=== PATIENT | male | born 1960 | race American Indian/Alaskan Native ===

== ENCOUNTER 2020-07-22 10:53 | Outpatient (CLI) | payer MEDICAID ==
[~2020-07-22 10:53] MED LIST: AMLO10TA13 PO; CARV25TA2 PO; DOCU-267 PO; ERGO500054 PO; HYDR-4069 PO; INSU100I31 SQ; PHO667C PO
[2020-07-22] MEDS ORDERED: LIDOcaine 2% 5ml jelly ONE (11:46)
== END 2020-07-22 23:59 | disposition home or self-care (01) ==
LOC: WOUND CARE 10:53 → EDSTATUS 11:00 → WOUND CARE 23:59
PROVIDERS: ATTEND Nurse Practitioner
DX: L02.31 Cutaneous abscess of buttock (principal); E11.621 Type 2 diabetes mellitus with foot ulcer; L97.511 Non-pressure chronic ulcer of other part of right foot limited to breakdown of skin; E11.22 Type 2 diabetes mellitus with diabetic chronic kidney disease; I12.9 Hypertensive chronic kidney disease with stage 1 through stage 4 chronic kidney disease, or unspecified chronic kidney disease; N18.4 Chronic kidney disease, stage 4 (severe); M72.0 Palmar fascial fibromatosis [Dupuytren]; E66.9 Obesity, unspecified; Z68.27 Body mass index [BMI] 27.0-27.9, adult; Z79.899 Other long term (current) drug therapy; Z98.890 Other specified postprocedural states; Z89.429 Acquired absence of other toe(s), unspecified side
CPT/HCPCS: 11042; 36416; 82948; 87070; 87075; 87077; 87186

== ENCOUNTER 2020-07-31 10:44 | Inpatient (IN) | payer MEDICAID ==
[~2020-07-31] VITALS: Ht 175.3 cm; Wt 96.0 kg
[2020-07-31] MEDS ORDERED: LIDOcaine 2% 5ml jelly ONE (11:23)
[2020-07-31] MEDS ORDERED: LIDOcaine 1% w/epiNEPHrine 1:200,000 30ml vial ONE (12:32)
[2020-07-31] MEDS ORDERED: diphenhydrAMINE 25mg capsule PO PRN (14:15)
[2020-07-31] MEDS ORDERED: bisacodyl 10mg suppository rectal RC PRN (14:15)
[2020-07-31] MEDS ORDERED: ondansetron/PF 4mg/2ml inj IV PRN (14:15)
[2020-07-31] MEDS ORDERED: HYDROmorphone inj. 0.5 MG/0.5 ML DISP.SYRIN IV PRN (14:15)
[2020-07-31] MEDS ORDERED: HYDROcodone/acetaminophen 5mg/325mg tablet PO PRN (14:15)
[2020-07-31] MEDS ORDERED: acetaminophen 325mg tablet PO PRN (14:15)
[2020-07-31] MEDS ORDERED: MESSAGE TO PHARMACY PO ONE (14:25)
[2020-07-31] MEDS ORDERED: glucagon, human recombinant 1mg kit SUBCUT PRN (14:25)
[2020-07-31] MEDS ORDERED: dextrose 50%-water 50ml dispensing syringe IV PRN ×2 (14:25)
[2020-07-31] MEDS ORDERED: dextrose ORAL solution 15 GM/59 ML bottle PO PRN ×2 (14:25)
[2020-07-31] MEDS ORDERED: VANCOmycin 2,000MG in NS 500ml IV soln IV ONE (15:00)
[2020-07-31 15:21] LABS: BASOPHILS # (AUTO) 0.1 X10'3 (0-0.2); BASOPHILS % (AUTO) 0.6 % (0-1); EOSINOPHILS # (AUTO) 0.1 X10'3 (0-0.9); EOSINOPHILS % (AUTO) 0.8 % (0-6); HEMATOCRIT 29.4 % (42.0-52.0); HEMOGLOBIN 9.8 g/dl (14.0-17.9); LYMPHOCYTES # (AUTO) 2.3 X10'3 (1.1-4.8); LYMPHOCYTES % (AUTO) 15.8 % (21-51); MEAN CORPUSCULAR HEMOGLOBIN 31.2 PG (27.0-31.0); MEAN CORPUSCULAR HGB CONC 33.3 g/dL (33.0-36.5); MEAN CORPUSCULAR VOLUME 93.9 FL (78-98); MONOCYTES # (AUTO) 1.3 X10'3 (0-0.9); MONOCYTES % (AUTO) 8.9 % (2-12); NEUTROPHILS # (AUTO) 10.8 X10'3 (1.8-7.7); NEUTROPHILS % (AUTO) 73.9 % (42-75); PLATELET COUNT 485 X10'3 (140-440); RED BLOOD COUNT 3.13 X10'6 (4.70-6.10); RED CELL DISTRIBUTION WIDTH 14.7 % (11.5-14.5); WHITE BLOOD COUNT 14.6 X10'3 (4.5-11.0)
[2020-07-31 15:34] LABS: PARTIAL THROMBOPLASTIN TIME 29 SECONDS (22-32)
[2020-07-31 15:40] LABS: HEMOGLOBIN A1C 7.8 % (4.5-6.2)
[2020-07-31 15:42] LABS: ALANINE AMINOTRANSFERASE 25 U/L (12-78); ALBUMIN 2.8 G/DL (3.4-5.0); ALBUMIN/GLOBULIN RATIO 0.4 (1.1-1.5); ALKALINE PHOSPHATASE 106 IU/L (46-116); ANION GAP 10 (8-16); ASPARTATE AMINO TRANSFERASE 11 U/L (10-37); BILIRUBIN,TOTAL 0.4 MG/DL (0.1-1.0); BLOOD UREA NITROGEN 45 MG/DL (7-18); BUN/CREATININE RATIO 7.5 (5.4-32.0); CALCIUM 9.9 MG/DL (8.5-10.1); CHLORIDE 91 MMOL/L (99-107); CREATININE 5.97 MG/DL (0.60-1.10); GLUCOSE 114 MG/DL (70-104); MAGNESIUM 2.5 MG/DL (1.5-2.4); PHOSPHORUS 5.9 MG/DL (2.3-4.5); POTASSIUM 3.7 MMOL/L (3.5-5.1); SODIUM 133 MMOL/L (135-145); TOTAL PROTEIN 9.6 G/DL (6.4-8.2); eGFR 10 ML/MIN
[2020-07-31] MEDS ORDERED: piperacillin/tazo 3.375gm/50ml 50 ML IV SCH (16:00)
--- NOTE | 2020-07-31 16:00 | NUR ---
Patient in room JAME 359. I have received report from Talisha MAHONEY and had the opportunity to ask questions and assume patient care.
[2020-07-31 16:30] VITALS: BP 123/64
[2020-07-31] MEDS ORDERED: vancomycin/NS 1 GM ADD-VANTAGE 250 ML IV PRN (17:25)
[2020-07-31 18:00] VITALS: BP 122/66
[2020-07-31] MEDS: docusate sod 100mg capsule PO SCH (19:09)
[2020-07-31] MEDS: HYDROcodone/acetaminophen 10/325mg tab PO PRN (19:10)
[2020-07-31] MEDS: insulin glargine (Lantus) pen - multi-dose SQ SCH (20:29)
[2020-07-31] MEDS ORDERED: temazepam 15mg capsule PO PRN (21:00)
[2020-07-31] MEDS: enoxaparin 30mg/0.3ml syringe SQ SCH (21:49)
[2020-07-31] MEDS: piperacillin/tazo 3.375gm/50ml 50 ML IV SCH (21:50)
[2020-08-01] VITALS: BP 166/76
[2020-08-01] MEDS: VANCOMYCIN LEVEL IV SCH (03:00)
[2020-08-01] MEDS: piperacillin/tazo 3.375gm/50ml 50 ML IV SCH ×3 (04:14→20:40)
--- NOTE | 2020-08-01 06:33 | NUR ---
Problems reprioritized. Patient report given, questions answered & plan of care reviewed with Santa NAVAS.
[2020-08-01 06:35] LABS: BASOPHILS # (AUTO) 0.1 X10'3 (0-0.2); BASOPHILS % (AUTO) 0.8 % (0-1); EOSINOPHILS # (AUTO) 0.2 X10'3 (0-0.9); EOSINOPHILS % (AUTO) 1.3 % (0-6); HEMATOCRIT 27.2 % (42.0-52.0); LYMPHOCYTES # (AUTO) 1.5 X10'3 (1.1-4.8); MEAN CORPUSCULAR HEMOGLOBIN 31.2 PG (27.0-31.0); MEAN CORPUSCULAR HGB CONC 33.2 g/dL (33.0-36.5); MEAN PLATELET VOLUME 7.2 FL (7.4-10.4); MONOCYTES % (AUTO) 7.7 % (2-12); NEUTROPHILS # (AUTO) 10.7 X10'3 (1.8-7.7); NEUTROPHILS % (AUTO) 79.2 % (42-75); PLATELET COUNT 445 X10'3 (140-440); RED CELL DISTRIBUTION WIDTH 14.5 % (11.5-14.5); WHITE BLOOD COUNT 13.6 X10'3 (4.5-11.0)
[2020-08-01 06:53] LABS: ALBUMIN 2.4 G/DL (3.4-5.0); ANION GAP 14 (8-16); BLOOD UREA NITROGEN 56 MG/DL (7-18); BUN/CREATININE RATIO 7.6 (5.4-32.0); CALCIUM 8.6 MG/DL (8.5-10.1); CHLORIDE 92 MMOL/L (99-107); CREATININE 7.41 MG/DL (0.60-1.10); GLUCOSE 150 MG/DL (70-104); MAGNESIUM 2.2 MG/DL (1.5-2.4); PHOSPHORUS 7.3 MG/DL (2.3-4.5); POTASSIUM 3.4 MMOL/L (3.5-5.1); SODIUM 134 MMOL/L (135-145); TOTAL CARBON DIOXIDE 27.7 MMOL/L (24-32); VANCOMYCIN,RANDOM 35.1 UG/ML; eGFR 8 ML/MIN
[2020-08-01] MEDS: docusate sod 100mg capsule PO SCH ×2 (07:40→20:39)
[2020-08-01 07:45] VITALS: BP 117/63
[2020-08-01] MEDS ORDERED: heparin 1,000unit/ml 10ml vial 10 ML IV ONE (08:00)
[2020-08-01] MEDS ORDERED: albumin (human) 25% 100ml IV 100 ML IV PRN (08:00)
[2020-08-01] MEDS ORDERED: epoetin 20,000 units/ml inj IV ONE (08:00)
[2020-08-01] MEDS ORDERED: heparin 1,000 units/ml 10ml inj IV ONE (08:00)
[2020-08-01] MEDS ORDERED: SEVE800T7 PO (08:02)
[2020-08-01] MEDS ORDERED: heparin 1,000 units/ml 10ml inj HE ONE ×2 (08:05)
[2020-08-01] MEDS: HYDROcodone/acetaminophen 10/325mg tab PO PRN ×2 (10:13→20:42)
[2020-08-01 11:50] VITALS: BP 126/62
[2020-08-01] MEDS ORDERED: LIDOcaine 1% (10mg/ml) 2ml vial SQ ONE (16:05)
--- NOTE | 2020-08-01 16:07 | NUR ---
Pt with A1c 7.8% with hx ESRD on HD admit with 2 right hip wounds, MRI of the pelvis and hip does not show any osteomyelitis per H&P. Attempted visit with pt at bedside however pt unavailable. Written protein and DM educations with RD contact information left at patient's bedside. Pt on a renal CHO controlled diet documented with 100% PO intake. D/w dietary to send double protein BIDLD for satiety and increased protein needs. Noted that pt with PhosLo on home med list though not receiving during admit, Phos currently 7.3 mg/dL up from 5.9 mg/dL on admit, d/w clinical pharmacist. Will continue to follow and monitor need for nutrition intervention. Addendum: 08/01/20 at [address] Amended: Links added.
[2020-08-01 18:00] VITALS: BP 121/65
--- NOTE | 2020-08-01 18:22 | NUR ---
Problems reprioritized. Patient report given, questions answered & plan of care reviewed with ELOISE SALCIDO.
[2020-08-01] MEDS: lactobacillus rhamnosus 10,000 MMU CELLS/CAPSULE PO SCH (20:39)
[2020-08-01] MEDS: enoxaparin 30mg/0.3ml syringe SQ SCH (20:40)
[2020-08-01] MEDS: sevelamer carbonate 800mg tablet PO SCH (20:40)
[2020-08-01] MEDS: insulin glargine (Lantus) pen - multi-dose SQ SCH (21:00)
[2020-08-02] VITALS: BP 114/64
[2020-08-02] MEDS: VANCOMYCIN LEVEL IV SCH (03:00)
[2020-08-02] MEDS: piperacillin/tazo 3.375gm/50ml 50 ML IV SCH ×2 (05:23→12:41)
--- NOTE | 2020-08-02 06:00 | NUR ---
Patient in room J[facility] 359. I have received report from ELOISE Goodwin and had the opportunity to ask questions and assume patient care.
--- NOTE | 2020-08-02 06:20 | NUR ---
Problems reprioritized. Patient report given, questions answered & plan of care reviewed with ELOISE Gann.
[2020-08-02 06:24] LABS: BASOPHILS # (AUTO) 0.1 X10'3 (0-0.2); BASOPHILS % (AUTO) 0.7 % (0-1); EOSINOPHILS # (AUTO) 0.2 X10'3 (0-0.9); EOSINOPHILS % (AUTO) 1.9 % (0-6); HEMATOCRIT 28.3 % (42.0-52.0); HEMOGLOBIN 9.5 g/dl (14.0-17.9); LYMPHOCYTES # (AUTO) 1.7 X10'3 (1.1-4.8); LYMPHOCYTES % (AUTO) 14.5 % (21-51); MEAN CORPUSCULAR HEMOGLOBIN 31.8 PG (27.0-31.0); MEAN CORPUSCULAR HGB CONC 33.6 g/dL (33.0-36.5); MEAN CORPUSCULAR VOLUME 94.6 FL (78-98); MEAN PLATELET VOLUME 7.2 FL (7.4-10.4); MONOCYTES % (AUTO) 8.6 % (2-12); NEUTROPHILS # (AUTO) 8.9 X10'3 (1.8-7.7); NEUTROPHILS % (AUTO) 74.3 % (42-75); PLATELET COUNT 446 X10'3 (140-440); RED BLOOD COUNT 2.99 X10'6 (4.70-6.10); RED CELL DISTRIBUTION WIDTH 14.7 % (11.5-14.5); WHITE BLOOD COUNT 11.9 X10'3 (4.5-11.0)
[2020-08-02 06:27] LABS: ALBUMIN 2.6 G/DL (3.4-5.0); ANION GAP 11 (8-16); BLOOD UREA NITROGEN 44 MG/DL (7-18); BUN/CREATININE RATIO 7.6 (5.4-32.0); CALCIUM 9.3 MG/DL (8.5-10.1); CHLORIDE 96 MMOL/L (99-107); CREATININE 5.82 MG/DL (0.60-1.10); GLUCOSE 141 MG/DL (70-104); MAGNESIUM 2.2 MG/DL (1.5-2.4); PHOSPHORUS 5.6 MG/DL (2.3-4.5); POTASSIUM 3.8 MMOL/L (3.5-5.1); SODIUM 136 MMOL/L (135-145); TOTAL CARBON DIOXIDE 29.1 MMOL/L (24-32); VANCOMYCIN,RANDOM 23.8 UG/ML; eGFR 10 ML/MIN
[2020-08-02] MEDS: sevelamer carbonate 800mg tablet PO SCH ×3 (07:30→17:26)
[2020-08-02 08:00] VITALS: BP 125/68
[2020-08-02] MEDS: lactobacillus rhamnosus 10,000 MMU CELLS/CAPSULE PO SCH ×2 (08:32→21:20)
[2020-08-02] MEDS: docusate sod 100mg capsule PO SCH ×2 (08:32→21:20)
--- NOTE | 2020-08-02 08:50 | NUR ---
xylocaine from dialysis non-admined as it was ordered for two days ago.
[2020-08-02 12:00] VITALS: BP 135/67
[2020-08-02] MEDS: HYDROcodone/acetaminophen 10/325mg tab PO PRN (17:29)
--- NOTE | 2020-08-02 18:00 | NUR ---
Problems reprioritized. Patient report given, questions answered & plan of care reviewed with ELOISE Quintero.
[2020-08-02 18:15] VITALS: BP 141/66
--- NOTE | 2020-08-02 18:21 | NUR ---
Patient in room [facility] 359. I have received report from ELOISE Holm and had the opportunity to ask questions and assume patient care.
[2020-08-02] MEDS: insulin glargine (Lantus) pen - multi-dose SQ SCH (21:00)
[2020-08-02] MEDS: enoxaparin 30mg/0.3ml syringe SQ SCH (21:21)
[2020-08-03 00:28] VITALS: BP 138/66
[2020-08-03] MEDS ORDERED: piperacillin/tazo 3.375gm/50ml 50 ML IV SCH (01:00)
[2020-08-03] MEDS: VANCOMYCIN LEVEL IV SCH (03:00)
--- NOTE | 2020-08-03 06:30 | NUR ---
Problems reprioritized. Patient report given, questions answered & plan of care reviewed with ELOISE Harrington.
[2020-08-03 06:35] LABS: BASOPHILS # (AUTO) 0.1 X10'3 (0-0.2); BASOPHILS % (AUTO) 0.7 % (0-1); EOSINOPHILS # (AUTO) 0.3 X10'3 (0-0.9); EOSINOPHILS % (AUTO) 2.5 % (0-6); HEMATOCRIT 28.2 % (42.0-52.0); HEMOGLOBIN 9.5 g/dl (14.0-17.9); LYMPHOCYTES # (AUTO) 1.8 X10'3 (1.1-4.8); MEAN CORPUSCULAR HEMOGLOBIN 31.8 PG (27.0-31.0); MEAN CORPUSCULAR HGB CONC 33.7 g/dL (33.0-36.5); MEAN CORPUSCULAR VOLUME 94.3 FL (78-98); MEAN PLATELET VOLUME 7.1 FL (7.4-10.4); MONOCYTES # (AUTO) 0.9 X10'3 (0-0.9); MONOCYTES % (AUTO) 8.9 % (2-12); NEUTROPHILS # (AUTO) 7.4 X10'3 (1.8-7.7); NEUTROPHILS % (AUTO) 70.9 % (42-75); PLATELET COUNT 443 X10'3 (140-440); RED BLOOD COUNT 2.99 X10'6 (4.70-6.10); RED CELL DISTRIBUTION WIDTH 14.8 % (11.5-14.5); WHITE BLOOD COUNT 10.5 X10'3 (4.5-11.0)
--- NOTE | 2020-08-03 07:03 | NUR ---
Patient in room [facility] 359. I have received report from ELOISE Quintero and had the opportunity to ask questions and assume patient care.
[2020-08-03 07:15] LABS: ALANINE AMINOTRANSFERASE 15 U/L (12-78); ALBUMIN 2.4 G/DL (3.4-5.0); ALBUMIN/GLOBULIN RATIO 0.4 (1.1-1.5); ALKALINE PHOSPHATASE 105 IU/L (46-116); ANION GAP 14 (8-16); ASPARTATE AMINO TRANSFERASE 11 U/L (10-37); BILIRUBIN,TOTAL 0.3 MG/DL (0.1-1.0); BLOOD UREA NITROGEN 70 MG/DL (7-18); BUN/CREATININE RATIO 9.3 (5.4-32.0); CALCIUM 9.2 MG/DL (8.5-10.1); CHLORIDE 97 MMOL/L (99-107); CREATININE 7.51 MG/DL (0.60-1.10); GLUCOSE 152 MG/DL (70-104); MAGNESIUM 2.4 MG/DL (1.5-2.4); PHOSPHORUS 7.9 MG/DL (2.3-4.5); POTASSIUM 4.3 MMOL/L (3.5-5.1); SODIUM 135 MMOL/L (135-145); TOTAL CARBON DIOXIDE 24.2 MMOL/L (24-32); TOTAL PROTEIN 8.4 G/DL (6.4-8.2); eGFR 7 ML/MIN
[2020-08-03] MEDS: lactobacillus rhamnosus 10,000 MMU CELLS/CAPSULE PO SCH ×2 (07:36→19:16)
[2020-08-03] MEDS: docusate sod 100mg capsule PO SCH ×2 (07:36→19:16)
[2020-08-03] MEDS: sevelamer carbonate 800mg tablet PO SCH ×3 (07:37→17:30)
[2020-08-03 07:52] LABS: ANISOCYTOSIS 1+; PLATELET ESTIMATE INCREASED; TOTAL CELLS COUNTED 100
[2020-08-03 08:00] VITALS: BP 151/71
[2020-08-03 12:11] VITALS: BP 129/68
[2020-08-03] MEDS: HYDROcodone/acetaminophen 10/325mg tab PO PRN (12:26)
[2020-08-03] MEDS: piperacillin/tazo 3.375gm/50ml 50 ML IV SCH (15:15)
[2020-08-03 18:15] VITALS: BP 133/66
--- NOTE | 2020-08-03 18:25 | NUR ---
Patient in room [facility] 359. I have received report from ELOISE Harrington and had the opportunity to ask questions and assume patient care.
--- NOTE | 2020-08-03 19:18 | NUR ---
Problems reprioritized. Patient report given, questions answered & plan of care reviewed with kyra GARCIA.
[2020-08-03] MEDS: enoxaparin 30mg/0.3ml syringe SQ SCH (21:25)
[2020-08-03] MEDS: insulin glargine (Lantus) pen - multi-dose SQ SCH (21:36)
[2020-08-04 00:06] VITALS: BP 159/68
[2020-08-04] MEDS: VANCOMYCIN LEVEL IV SCH (02:17)
[2020-08-04] MEDS: HYDROcodone/acetaminophen 10/325mg tab PO PRN ×2 (03:09→20:12)
[2020-08-04] MEDS: piperacillin/tazo 3.375gm/50ml 50 ML IV SCH ×2 (03:24→19:42)
--- NOTE | 2020-08-04 06:37 | NUR ---
Patient in room [facility] 359. I have received report from Ingrid NAVAS and had the opportunity to ask questions and assume patient care.
--- NOTE | 2020-08-04 06:43 | NUR ---
Problems reprioritized. Patient report given, questions answered & plan of care reviewed with ELOISE Snider.
[2020-08-04 08:00] VITALS: BP 142/65
[2020-08-04 08:13] LABS: BASOPHILS # (AUTO) 0.1 X10'3 (0-0.2); BASOPHILS % (AUTO) 0.8 % (0-1); EOSINOPHILS # (AUTO) 0.2 X10'3 (0-0.9); EOSINOPHILS % (AUTO) 1.7 % (0-6); HEMOGLOBIN 9.3 g/dl (14.0-17.9); LYMPHOCYTES # (AUTO) 1.9 X10'3 (1.1-4.8); LYMPHOCYTES % (AUTO) 18.5 % (21-51); MEAN CORPUSCULAR HEMOGLOBIN 32.7 PG (27.0-31.0); MEAN CORPUSCULAR HGB CONC 34.5 g/dL (33.0-36.5); MEAN CORPUSCULAR VOLUME 94.8 FL (78-98); MEAN PLATELET VOLUME 7.1 FL (7.4-10.4); MONOCYTES # (AUTO) 0.8 X10'3 (0-0.9); MONOCYTES % (AUTO) 7.4 % (2-12); NEUTROPHILS # (AUTO) 7.4 X10'3 (1.8-7.7); NEUTROPHILS % (AUTO) 71.6 % (42-75); PLATELET COUNT 451 X10'3 (140-440); RED BLOOD COUNT 2.85 X10'6 (4.70-6.10); RED CELL DISTRIBUTION WIDTH 14.5 % (11.5-14.5); WHITE BLOOD COUNT 10.3 X10'3 (4.5-11.0)
[2020-08-04 08:33] LABS: ALBUMIN 2.4 G/DL (3.4-5.0); ANION GAP 15 (8-16); BLOOD UREA NITROGEN 83 MG/DL (7-18); BUN/CREATININE RATIO 10.1 (5.4-32.0); CHLORIDE 96 MMOL/L (99-107); CREATININE 8.21 MG/DL (0.60-1.10); GLUCOSE 125 MG/DL (70-104); MAGNESIUM 2.3 MG/DL (1.5-2.4); PHOSPHORUS 9.4 MG/DL (2.3-4.5); POTASSIUM 4.6 MMOL/L (3.5-5.1); SODIUM 135 MMOL/L (135-145); TOTAL CARBON DIOXIDE 23.9 MMOL/L (24-32); VANCOMYCIN,RANDOM 16.7 UG/ML; eGFR 7 ML/MIN
[2020-08-04] MEDS: lactobacillus rhamnosus 10,000 MMU CELLS/CAPSULE PO SCH ×2 (08:35→19:42)
[2020-08-04] MEDS: docusate sod 100mg capsule PO SCH ×2 (08:35→19:42)
[2020-08-04] MEDS: sevelamer carbonate 800mg tablet PO SCH ×3 (08:35→19:42)
[2020-08-04] MEDS: insulin Lispro (HumaLOG) vial - multi-dose SQ SCH ×3 (08:40→19:59)
[2020-08-04 09:15] LABS: BASOPHILS # (AUTO) 0.1 X10'3 (0-0.2); BASOPHILS % (AUTO) 0.8 % (0-1); EOSINOPHILS # (AUTO) 0.2 X10'3 (0-0.9); EOSINOPHILS % (AUTO) 2.2 % (0-6); HEMATOCRIT 28.2 % (42.0-52.0); HEMOGLOBIN 9.7 g/dl (14.0-17.9); LYMPHOCYTES # (AUTO) 1.9 X10'3 (1.1-4.8); LYMPHOCYTES % (AUTO) 18.7 % (21-51); MEAN CORPUSCULAR HEMOGLOBIN 32.6 PG (27.0-31.0); MEAN CORPUSCULAR HGB CONC 34.3 g/dL (33.0-36.5); MEAN PLATELET VOLUME 6.9 FL (7.4-10.4); MONOCYTES # (AUTO) 0.6 X10'3 (0-0.9); NEUTROPHILS # (AUTO) 7.3 X10'3 (1.8-7.7); NEUTROPHILS % (AUTO) 72.3 % (42-75); PLATELET COUNT 441 X10'3 (140-440); RED BLOOD COUNT 2.97 X10'6 (4.70-6.10); RED CELL DISTRIBUTION WIDTH 14.7 % (11.5-14.5); WHITE BLOOD COUNT 10.1 X10'3 (4.5-11.0)
[2020-08-04] MEDS ORDERED: heparin 1,000 units/ml 10ml inj IV ONE (09:15)
[2020-08-04] MEDS ORDERED: albumin (human) 25% 100ml IV 100 ML IV PRN (09:15)
[2020-08-04] MEDS ORDERED: epoetin 20,000 units/ml inj IV ONE (09:15)
[2020-08-04] MEDS ORDERED: heparin 1,000unit/ml 10ml vial 10 ML IV ONE (09:15)
[2020-08-04 09:22] LABS: ALBUMIN 2.4 G/DL (3.4-5.0); ANION GAP 13 (8-16); BLOOD UREA NITROGEN 83 MG/DL (7-18); BUN/CREATININE RATIO 10.2 (5.4-32.0); CHLORIDE 96 MMOL/L (99-107); CREATININE 8.16 MG/DL (0.60-1.10); GLUCOSE 199 MG/DL (70-104); POTASSIUM 4.6 MMOL/L (3.5-5.1); SODIUM 134 MMOL/L (135-145); TOTAL CARBON DIOXIDE 25.5 MMOL/L (24-32); eGFR 7 ML/MIN
[2020-08-04 11:00] VITALS: BP 139/67
[2020-08-04 18:00] VITALS: BP 131/66
--- NOTE | 2020-08-04 18:42 | NUR ---
Problems reprioritized. Patient report given, questions answered & plan of care reviewed with Frida NAVAS.
--- NOTE | 2020-08-04 20:02 | NUR ---
pattern vault clerk gave procrit and heparin. did not visualize process.
[2020-08-04] MEDS: insulin glargine (Lantus) pen - multi-dose SQ SCH (21:56)
[2020-08-04] MEDS: enoxaparin 30mg/0.3ml syringe SQ SCH (22:02)
[2020-08-04 23:00] VITALS: BP 135/67
--- NOTE | 2020-08-05 05:53 | NUR ---
reported to days. noted pt resting w/o distress. anticipates discharge if HD able to be arranged.
[2020-08-05 06:25] LABS: BASOPHILS # (AUTO) 0.1 X10'3 (0-0.2); BASOPHILS % (AUTO) 0.9 % (0-1); EOSINOPHILS # (AUTO) 0.2 X10'3 (0-0.9); EOSINOPHILS % (AUTO) 1.7 % (0-6); HEMATOCRIT 28.6 % (42.0-52.0); HEMOGLOBIN 9.5 g/dl (14.0-17.9); LYMPHOCYTES # (AUTO) 1.8 X10'3 (1.1-4.8); LYMPHOCYTES % (AUTO) 16.5 % (21-51); MEAN CORPUSCULAR HEMOGLOBIN 31.3 PG (27.0-31.0); MEAN CORPUSCULAR HGB CONC 33.2 g/dL (33.0-36.5); MEAN CORPUSCULAR VOLUME 94.4 FL (78-98); MEAN PLATELET VOLUME 6.8 FL (7.4-10.4); MONOCYTES # (AUTO) 0.9 X10'3 (0-0.9); MONOCYTES % (AUTO) 8.4 % (2-12); NEUTROPHILS % (AUTO) 72.5 % (42-75); PLATELET COUNT 439 X10'3 (140-440); RED BLOOD COUNT 3.03 X10'6 (4.70-6.10); RED CELL DISTRIBUTION WIDTH 14.5 % (11.5-14.5)
[2020-08-05 06:37] LABS: ALBUMIN 2.5 G/DL (3.4-5.0); ANION GAP 13 (8-16); BLOOD UREA NITROGEN 54 MG/DL (7-18); BUN/CREATININE RATIO 9.3 (5.4-32.0); CALCIUM 9.1 MG/DL (8.5-10.1); CHLORIDE 99 MMOL/L (99-107); CREATININE 5.83 MG/DL (0.60-1.10); GLUCOSE 114 MG/DL (70-104); MAGNESIUM 2.1 MG/DL (1.5-2.4); PHOSPHORUS 6.8 MG/DL (2.3-4.5); SODIUM 138 MMOL/L (135-145); TOTAL CARBON DIOXIDE 26.4 MMOL/L (24-32); VANCOMYCIN,RANDOM 12.9 UG/ML; eGFR 10 ML/MIN
--- NOTE | 2020-08-05 06:42 | NUR ---
Patient in room [facility] 359. I have received report from Usama NAVAS and had the opportunity to ask questions and assume patient care.
[2020-08-05] MEDS: VANCOMYCIN LEVEL IV SCH (07:00)
[2020-08-05] MEDS ORDERED: vancomycin/NS 1 GM ADD-VANTAGE 250 ML IV ONE (07:51)
[2020-08-05 08:00] VITALS: BP 139/64
[2020-08-05] MEDS: piperacillin/tazo 3.375gm/50ml 50 ML IV SCH ×2 (08:00→19:02)
[2020-08-05] MEDS: lactobacillus rhamnosus 10,000 MMU CELLS/CAPSULE PO SCH ×2 (08:33→19:01)
[2020-08-05] MEDS: docusate sod 100mg capsule PO SCH ×2 (08:33→19:02)
[2020-08-05] MEDS: sevelamer carbonate 800mg tablet PO SCH ×3 (08:33→17:35)
[2020-08-05] MEDS: insulin Lispro (HumaLOG) vial - multi-dose SQ SCH ×2 (08:39→19:04)
[2020-08-05 11:00] VITALS: BP 117/63
--- NOTE | 2020-08-05 16:26 | NUR ---
Initial: Great appetite, eating 75-100%, meeting needs. Phosphorus is elevated, pt refusing renvela at times. Pt pending discharge per MD progress note. Rec: 1. continue renal, carb controlled diet. 2. bowel care as needed 3. wt per rx Addendum: 08/05/20 at [address] Amended: Links added.
--- NOTE | 2020-08-05 18:24 | NUR ---
Problems reprioritized. Patient report given, questions answered & plan of care reviewed with Usama NAVAS.
[2020-08-05 19:00] VITALS: BP 163/71
[2020-08-05] MEDS: enoxaparin 30mg/0.3ml syringe SQ SCH (19:06)
--- NOTE | 2020-08-05 20:44 | NUR ---
reviewed plan of care with Pt's daughter Theresa. anticipate discharge . she will contact us with who will be able to pick him up on . she is unable to pick him up but her sister in law Dunia De Souza may be able to - Dunia lives in [place].
[2020-08-05] MEDS: insulin glargine (Lantus) pen - multi-dose SQ SCH (21:13)
--- NOTE | 2020-08-05 23:30 | NUR ---
noted new wounds on patient during bath. skin tear on anterior scrotum and non blanching coccyx. placed cream on scrotum - pt has no pain noted. coccyx has foam dressing. placed bandaids over elbows where old skin tears are breaking open and bleeding. full bed bath and turn. encouraged pt to turn q2 during the day as well. pt able to scoot his own hips over and turn independently. placed on mist mask for oxygen level that was low 80%. 2L trach mask brought up to 95%. Addendum: 08/05/20 at 2334 by Usama Ingram RN omit - wrong patient.
[2020-08-06] VITALS (32 sets, daily range): BP systolic 114–218; BP diastolic 57–106
[2020-08-06] MEDS: VANCOMYCIN LEVEL IV SCH (03:00)
[2020-08-06 06:13] LABS: PARTIAL THROMBOPLASTIN TIME 28 SECONDS (22-32)
[2020-08-06 06:15] LABS: BASOPHILS # (AUTO) 0.1 X10'3 (0-0.2); BASOPHILS % (AUTO) 0.8 % (0-1); EOSINOPHILS # (AUTO) 0.2 X10'3 (0-0.9); HEMOGLOBIN 9.5 g/dl (14.0-17.9); LYMPHOCYTES # (AUTO) 1.9 X10'3 (1.1-4.8); MEAN CORPUSCULAR HEMOGLOBIN 32.4 PG (27.0-31.0); MEAN CORPUSCULAR VOLUME 95.3 FL (78-98); MEAN PLATELET VOLUME 7.1 FL (7.4-10.4); MONOCYTES # (AUTO) 0.8 X10'3 (0-0.9); MONOCYTES % (AUTO) 8.2 % (2-12); PLATELET COUNT 419 X10'3 (140-440); RED BLOOD COUNT 2.93 X10'6 (4.70-6.10); RED CELL DISTRIBUTION WIDTH 14.9 % (11.5-14.5)
[2020-08-06 06:30] LABS: ALANINE AMINOTRANSFERASE 37 U/L (12-78); ALBUMIN 2.5 G/DL (3.4-5.0); ALBUMIN/GLOBULIN RATIO 0.4 (1.1-1.5); ALKALINE PHOSPHATASE 118 IU/L (46-116); ANION GAP 13 (8-16); ASPARTATE AMINO TRANSFERASE 26 U/L (10-37); BILIRUBIN,TOTAL 0.4 MG/DL (0.1-1.0); BLOOD UREA NITROGEN 69 MG/DL (7-18); BUN/CREATININE RATIO 10.1 (5.4-32.0); CALCIUM 9.3 MG/DL (8.5-10.1); CHLORIDE 99 MMOL/L (99-107); CREATININE 6.82 MG/DL (0.60-1.10); GLUCOSE 143 MG/DL (70-104); POTASSIUM 4.4 MMOL/L (3.5-5.1); SODIUM 139 MMOL/L (135-145); TOTAL CARBON DIOXIDE 27.3 MMOL/L (24-32); TOTAL PROTEIN 8.3 G/DL (6.4-8.2); eGFR 8 ML/MIN
--- NOTE | 2020-08-06 06:48 | NUR ---
reported to days. noted pt resting w/o distress. anticipating surgery, then dialysis, then staying the night before discharge tomorrow
[2020-08-06] MEDS: sevelamer carbonate 800mg tablet PO SCH ×3 (07:30→17:30)
[2020-08-06] MEDS ORDERED: albumin (human) 25% 100ml IV 100 ML IV PRN (08:00)
[2020-08-06] MEDS: lactobacillus rhamnosus 10,000 MMU CELLS/CAPSULE PO SCH ×2 (08:00→20:10)
[2020-08-06] MEDS: docusate sod 100mg capsule PO SCH ×2 (08:00→20:10)
[2020-08-06] MEDS ORDERED: epoetin 20,000 units/ml inj IV ONE (08:00)
[2020-08-06] MEDS ORDERED: heparin 1,000unit/ml 10ml vial 10 ML IV ONE (08:00)
[2020-08-06] MEDS ORDERED: heparin 1,000 units/ml 10ml inj IV ONE (08:00)
[2020-08-06] MEDS: piperacillin/tazo 3.375gm/50ml 50 ML IV SCH ×2 (08:25→21:28)
[2020-08-06 12:30] LABS: HBSAG SCREEN Negative (Negative)
[2020-08-06] MEDS ORDERED: morphine 4 MG/ML inj SYRINge IV PRN (14:00)
[2020-08-06] MEDS ORDERED: ringers solution, lacted 1,000 ML IV SCH (14:00)
[2020-08-06] MEDS ORDERED: fentaNYL/PF 50MCG/1 ML 2ML syringe IV PRN ×2 (14:00)
[2020-08-06] MEDS ORDERED: ondansetron/PF 4mg/2ml inj IV PRN (14:00)
[2020-08-06] MEDS ORDERED: hydrALAZINE 20mg/ml inj. IV PRN (14:00)
[2020-08-06] MEDS ORDERED: morphine 2 MG/ML inj. syringe IV PRN (14:00)
--- NOTE | 2020-08-06 15:03 | NUR ---
Problems reprioritized. Patient report given, questions answered & plan of care reviewed with ELOISE SPARROW FROM OR.
[2020-08-06] MEDS ORDERED: sevoflurane 250ml liquid IH ONE (15:45)
[2020-08-06] MEDS ORDERED: midazolam 2 mg/2 ml injection ONE (15:45)
[2020-08-06] MEDS ORDERED: etomidate 2mg/ml inj. ONE ×2 (15:45)
[2020-08-06] MEDS ORDERED: fentaNYL/PF 50MCG/1 ML 2ML syringe ONE (15:45)
[2020-08-06] MEDS ORDERED: dexamethasone sod phosphate 4mg/ml inj. ONE (16:08)
[2020-08-06] MEDS ORDERED: ePHEDrine 50MG/ML INJ. ONE (16:08)
[2020-08-06] MEDS ORDERED: ondansetron/PF 4mg/2ml inj ONE (16:08)
--- NOTE | 2020-08-06 16:40 | NUR ---
Received from OR via ORTHO BED, accompanied by Anesthesiologist SANTA and report given by Anesthesiolgist. PT AWAKE PIV 22G TO RIGHT WRIST IVF LR AT 100ML/HR, VS-STABLE EXCEPT HYPERTENSIVE, MD AT BEDSIDE-ORDERS RECEIVED. DRSGS TO RIGHT GULTEAL AREA PACKED AND COVERED WITH ABD, DENIES PAIN,
[2020-08-06] MEDS: labetalol 20mg/4ml (5mg/ml) syringe IV PRN ×2 (16:47→17:32)
--- NOTE | 2020-08-06 17:30 | NUR ---
Patient in room [facility] 359. I have received report from ELOISE MACKAY FROM RECOVERY and had the opportunity to ask questions and assume patient care.
[2020-08-06] MEDS ORDERED: enalaprilat dihydrate 2.5mg/2ml vial IV ONE (17:50)
--- NOTE | 2020-08-06 17:52 | NUR ---
PT CONTINUES TO HAVE ELEVATED BP DESPITE MEDICAL TX ATTEMPTED-DR PRATT CALLED, NEW ORDERS RECEIVED
--- NOTE | 2020-08-06 18:27 | NUR ---
Problems reprioritized. Patient report given, questions answered & plan of care reviewed with ELOISE ROSE.
--- NOTE | 2020-08-06 18:48 | NUR ---
I have received report from ELOISE Ulloa and had the opportunity to ask questions and assume patient care. Patient is in the recovery room at this time.
--- NOTE | 2020-08-06 18:50 | NUR ---
Patient arrived from recovery room, [facility], in no apparent distress. Dressing was intact with minimal drainage.
--- NOTE | 2020-08-06 18:50 | NUR ---
Report called to receiving nurse. Transferred via SURGICAL BED TO PRIOR ROOM, PT STABLE ALERT, AWARE OF TRANSFER, CALL LIGHT IN REACH, RN AT BEDSIDE. Special Issues communicated to receiving nurse.
[2020-08-06] MEDS: enoxaparin 30mg/0.3ml syringe SQ SCH (20:11)
[2020-08-06] MEDS: insulin glargine (Lantus) pen - multi-dose SQ SCH (21:46)
[2020-08-07] MEDS: HYDROcodone/acetaminophen 10/325mg tab PO PRN ×2 (00:12→17:27)
--- NOTE | 2020-08-07 02:35 | NUR ---
DRESSING REINFORCED Addendum: 08/07/20 at 0236 by Mcarina Reddy RN Amended: Links added.
[2020-08-07] MEDS: VANCOMYCIN LEVEL IV SCH (03:00)
[2020-08-07 03:46] LABS: HEMATOCRIT 27.6 % (42.0-52.0); HEMOGLOBIN 9.2 g/dl (14.0-17.9); MEAN CORPUSCULAR HEMOGLOBIN 31.5 PG (27.0-31.0); MEAN CORPUSCULAR HGB CONC 33.2 g/dL (33.0-36.5); MEAN PLATELET VOLUME 7.1 FL (7.4-10.4); PLATELET COUNT 396 X10'3 (140-440); RED CELL DISTRIBUTION WIDTH 14.9 % (11.5-14.5); WHITE BLOOD COUNT 12.8 X10'3 (4.5-11.0)
[2020-08-07 04:35] VITALS: BP 172/78
--- NOTE | 2020-08-07 06:00 | NUR ---
Patient in room [facility] 359. I have received report from ELOISE Escobar and had the opportunity to ask questions and assume patient care.
--- NOTE | 2020-08-07 06:10 | NUR ---
Patient report given, questions answered & plan of care reviewed with ELOISE Hinson.
[2020-08-07] MEDS: lactobacillus rhamnosus 10,000 MMU CELLS/CAPSULE PO SCH ×2 (07:12→20:36)
[2020-08-07] MEDS: piperacillin/tazo 3.375gm/50ml 50 ML IV SCH ×2 (07:12→20:39)
[2020-08-07] MEDS: sevelamer carbonate 800mg tablet PO SCH ×3 (07:12→17:27)
[2020-08-07 08:00] VITALS: BP 160/80
[2020-08-07] MEDS ORDERED: heparin 1,000 units/ml 10ml inj IV ONE (08:00)
[2020-08-07] MEDS ORDERED: normal saline 1000ml 250 ML IV PRN (08:00)
[2020-08-07] MEDS ORDERED: LIDOcaine 1% (10mg/ml) 2ml vial SQ ONE (08:00)
[2020-08-07] MEDS ORDERED: epoetin 20,000 units/ml inj IV ONE (08:00)
[2020-08-07] MEDS: docusate sod 100mg capsule PO SCH ×2 (08:11→20:36)
[2020-08-07] MEDS: insulin Lispro (HumaLOG) vial - multi-dose SQ SCH ×2 (10:22→19:24)
[2020-08-07 11:00] VITALS: BP 179/73
--- NOTE | 2020-08-07 18:25 | NUR ---
Problems reprioritized. Patient report given, questions answered & plan of care reviewed with ELOISE Blackman.
[2020-08-07 20:00] VITALS: BP 136/80
[2020-08-07] MEDS: enoxaparin 30mg/0.3ml syringe SQ SCH (20:38)
[2020-08-07] MEDS: insulin glargine (Lantus) pen - multi-dose SQ SCH (21:06)
[2020-08-08] VITALS: BP 160/70
[2020-08-08] MEDS: VANCOMYCIN LEVEL IV SCH (03:00)
[2020-08-08 05:50] LABS: BASOPHILS # (AUTO) 0.1 X10'3 (0-0.2); EOSINOPHILS # (AUTO) 0.1 X10'3 (0-0.9); EOSINOPHILS % (AUTO) 1.3 % (0-6); HEMATOCRIT 29.3 % (42.0-52.0); HEMOGLOBIN 9.9 g/dl (14.0-17.9); LYMPHOCYTES # (AUTO) 2.1 X10'3 (1.1-4.8); LYMPHOCYTES % (AUTO) 21.9 % (21-51); MEAN CORPUSCULAR HEMOGLOBIN 31.7 PG (27.0-31.0); MEAN CORPUSCULAR HGB CONC 33.7 g/dL (33.0-36.5); MEAN CORPUSCULAR VOLUME 94.1 FL (78-98); MEAN PLATELET VOLUME 6.7 FL (7.4-10.4); MONOCYTES # (AUTO) 0.8 X10'3 (0-0.9); MONOCYTES % (AUTO) 8.4 % (2-12); NEUTROPHILS # (AUTO) 6.3 X10'3 (1.8-7.7); NEUTROPHILS % (AUTO) 67.4 % (42-75); PLATELET COUNT 404 X10'3 (140-440); RED BLOOD COUNT 3.11 X10'6 (4.70-6.10); RED CELL DISTRIBUTION WIDTH 15.4 % (11.5-14.5); WHITE BLOOD COUNT 9.4 X10'3 (4.5-11.0)
[2020-08-08 06:02] LABS: ALANINE AMINOTRANSFERASE 51 U/L (12-78); ALBUMIN 2.6 G/DL (3.4-5.0); ALBUMIN/GLOBULIN RATIO 0.5 (1.1-1.5); ALKALINE PHOSPHATASE 94 IU/L (46-116); ANION GAP 11 (8-16); ASPARTATE AMINO TRANSFERASE 27 U/L (10-37); BILIRUBIN,TOTAL 0.4 MG/DL (0.1-1.0); BLOOD UREA NITROGEN 42 MG/DL (7-18); BUN/CREATININE RATIO 7.6 (5.4-32.0); CALCIUM 9.4 MG/DL (8.5-10.1); CHLORIDE 101 MMOL/L (99-107); CREATININE 5.53 MG/DL (0.60-1.10); GLUCOSE 121 MG/DL (70-104); POTASSIUM 4.5 MMOL/L (3.5-5.1); SODIUM 139 MMOL/L (135-145); TOTAL CARBON DIOXIDE 27.3 MMOL/L (24-32); TOTAL PROTEIN 8.1 G/DL (6.4-8.2); eGFR 11 ML/MIN
--- NOTE | 2020-08-08 06:42 | NUR ---
Patient in room [facility] 359. I have received report from ELOISE Blackman and adiel Delaney RN and had the opportunity to ask questions and assume patient care.
--- NOTE | 2020-08-08 06:42 | NUR ---
Problems reprioritized. Patient report given, questions answered & plan of care reviewed with GEORGES NAVAS.
[2020-08-08] MEDS: piperacillin/tazo 3.375gm/50ml 50 ML IV SCH ×2 (08:00→08:37)
[2020-08-08] MEDS: lactobacillus rhamnosus 10,000 MMU CELLS/CAPSULE PO SCH (08:34)
[2020-08-08] MEDS: docusate sod 100mg capsule PO SCH (08:35)
[2020-08-08] MEDS: sevelamer carbonate 800mg tablet PO SCH ×2 (08:35→13:15)
[2020-08-08] MEDS: insulin Lispro (HumaLOG) vial - multi-dose SQ SCH ×2 (08:39→13:21)
[2020-08-08] MEDS ORDERED: vancomycin/NS 1 GM ADD-VANTAGE 250 ML IV ONE (08:55)
[2020-08-08 11:00] VITALS: BP 133/74
[2020-08-08] MEDS: HYDROcodone/acetaminophen 10/325mg tab PO PRN (16:13)
--- NOTE | 2020-08-08 16:45 | NUR ---
Pt discharged to home with all belongings, in private vehicle, accompanied by family. Discharge instructions and medications reviewed, as well as wound care recommendations for family. Three days worth of wound care supplies sent home with patient, with instructions to follow up with [facility]. Pt also advised to follow up with [facility] when roads from [place] are safe to travel. No new prescriptions ordered. Pt declined having blood sugar checked prior to discharge. Pt stated understanding and willingness to comply with all discharge instructions. Pt escorted to front lobby via wheelchair by PCT.
== END 2020-08-08 16:48 | disposition home or self-care (01) | DRG 383 ==
LOC: WOUND CARE 10:44 → SUR 3N 14:15
PROVIDERS: ADMIT Internal Medicine Critical Care Medicine; ATTEND Internal Medicine Critical Care Medicine
PROC: 0JB90ZZ Excision of Buttock Subcutaneous Tissue and Fascia, Open Approach (ICD-10-PCS; principal; 2020-08-07)
DX: L02.31 Cutaneous abscess of buttock (principal); L03.317 Cellulitis of buttock; N18.6 End stage renal disease; D63.1 Anemia in chronic kidney disease; E11.22 Type 2 diabetes mellitus with diabetic chronic kidney disease; H54.8 Legal blindness, as defined in USA; I12.0 Hypertensive chronic kidney disease with stage 5 chronic kidney disease or end stage renal disease; Z99.2 Dependence on renal dialysis; Z20.828 Contact with and (suspected) exposure to other viral communicable diseases
CPT/HCPCS: 10061; 36415; 72195; 80048; 80053; 80202; 82948; 83036; 83605; 83735; 83880; 84100; 85007; 85025; 85027; 85610; 85730; 87040; 87081; 87340; 87635; 92508; 92616; 93005; 97161; 97530; A4618; A6253; A6266; A6449; A7000; G0378; J1100; J1644; J1650; J1815; J2001; J2250; J2270; J2405; J2543; J3010; J3370; J3490; J7040; Q4081

== ENCOUNTER 2021-12-01 14:10 | Inpatient (IN) | payer MEDICARE, MEDICAID ==
[~2021-12-01] VITALS: Ht 175.3 cm; Wt 86.2 kg
[~2021-12-01 14:10] MED LIST changes: -AMLO10TA13 PO; -CARV25TA2 PO; -ERGO500054 PO; -HYDR-4069 PO; -PHO667C PO; +SEVE800T7 PO
[2021-12-01] MEDS ORDERED: metoclopramide 5 mg/ml inj IV PRN (15:55)
[2021-12-01] MEDS ORDERED: magnesium 4gm in 100ml NS 100 ML IV PRN (15:55)
[2021-12-01] MEDS ORDERED: bisacodyl 10mg suppository rectal RC PRN (15:55)
[2021-12-01] MEDS ORDERED: potassium Cl 20 mEq SR tablet PO PRN ×2 (15:55)
[2021-12-01] MEDS ORDERED: mag hydrox/Alum hydrox/simeth 30ml oral suspension PO PRN (15:55)
[2021-12-01] MEDS ORDERED: magnesium 2GM in 50ml NS 50 ML IV PRN (15:55)
[2021-12-01] MEDS ORDERED: magnesium hydroxide 30ml (MOM) UD suspension PO PRN (15:55)
[2021-12-01] MEDS ORDERED: HYDROcodone/acetaminophen 10/325mg tab PO PRN (15:55)
[2021-12-01] MEDS ORDERED: HYDROmorphone/PF 0.2 MG/ML SYRINGE IV PRN (15:55)
[2021-12-01] MEDS ORDERED: ondansetron/PF 4mg/2ml inj IV PRN (15:55)
[2021-12-01] MEDS ORDERED: acetaminophen 325mg tablet PO PRN ×2 (15:55)
[2021-12-01] MEDS ORDERED: HYDROmorphone inj. 0.5 MG/0.5 ML DISP.SYRIN IV PRN (15:55)
[2021-12-01] MEDS ORDERED: potassium CL 10mEq/100ml bag 100 ML IV PRN (15:55)
[2021-12-01] MEDS ORDERED: ondansetron 4mg rapidly disintigrating tab PO PRN (15:55)
[2021-12-01] MEDS ORDERED: magnesium Cl slow-release 64mg tablet PO PRN (15:55)
[2021-12-01] MEDS ORDERED: acetaminophen 650mg rectal suppository RC PRN (15:55)
[2021-12-01] MEDS: normal saline 1000ml 1,000 ML IV SCH (16:30)
[2021-12-01 16:42] VITALS: BP 136/77
[2021-12-01 17:03] LABS: BASOPHILS # (AUTO) 0.1 X10'3 (0-0.2); BASOPHILS % (AUTO) 0.6 % (0-1); EOSINOPHILS # (AUTO) 0.1 X10'3 (0-0.9); EOSINOPHILS % (AUTO) 1.4 % (0-6); HEMATOCRIT 30.9 % (42.0-52.0); HEMOGLOBIN 10.1 g/dl (14.0-17.9); LYMPHOCYTES # (AUTO) 1.8 X10'3 (1.1-4.8); LYMPHOCYTES % (AUTO) 17.5 % (21-51); MEAN CORPUSCULAR HEMOGLOBIN 29.4 PG (27.0-31.0); MEAN CORPUSCULAR HGB CONC 32.6 g/dL (33.0-36.5); MEAN CORPUSCULAR VOLUME 90.1 FL (78-98); MEAN PLATELET VOLUME 7.2 FL (7.4-10.4); MONOCYTES # (AUTO) 0.9 X10'3 (0-0.9); MONOCYTES % (AUTO) 8.5 % (2-12); NEUTROPHILS # (AUTO) 7.6 X10'3 (1.8-7.7); PLATELET COUNT 405 X10'3 (140-440); RED BLOOD COUNT 3.43 X10'6 (4.70-6.10); RED CELL DISTRIBUTION WIDTH 15.6 % (11.5-14.5); WHITE BLOOD COUNT 10.5 X10'3 (4.5-11.0)
[2021-12-01 17:16] LABS: APTT 29 SECONDS (22-32)
[2021-12-01 17:20] LABS: MAGNESIUM 2.2 MG/DL (1.5-2.4)
[2021-12-01 17:21] LABS: HEMOGLOBIN A1C 9.5 % (4.5-6.2)
[2021-12-01 17:26] LABS: ALANINE AMINOTRANSFERASE 23 U/L (12-78); ALBUMIN 2.6 G/DL (3.4-5.0); ALBUMIN/GLOBULIN RATIO 0.4 (1.1-1.5); ALKALINE PHOSPHATASE 117 IU/L (46-116); ANION GAP 9 (8-16); ASPARTATE AMINO TRANSFERASE 16 U/L (10-37); BILIRUBIN,TOTAL 0.2 MG/DL (0.1-1.0); BLOOD UREA NITROGEN 42 MG/DL (7-18); BUN/CREATININE RATIO 8.4 (5.4-32.0); CALCIUM 8.6 MG/DL (8.5-10.1); CHLORIDE 96 MMOL/L (99-107); CREATININE 4.98 MG/DL (0.60-1.10); GLUCOSE 191 MG/DL (70-104); MAGNESIUM 2.1 MG/DL (1.5-2.4); PHOSPHORUS 3.9 MG/DL (2.3-4.5); POTASSIUM 4.2 MMOL/L (3.5-5.1); SODIUM 134 MMOL/L (135-145); TOTAL CARBON DIOXIDE 28.6 MMOL/L (24-32); TOTAL PROTEIN 9.3 G/DL (6.4-8.2); eGFR 12 ML/MIN
[2021-12-01] MEDS ORDERED: SEVE800T8 PO (17:50)
[2021-12-01 18:00] VITALS: BP 167/41
--- NOTE | 2021-12-01 18:30 | NUR ---
Patient in room PCU 3014. I have received report from Esperanza NAVAS and had the opportunity to ask questions and assume patient care. Apparently patient had just recently arrived to the floor as a direct admit from wound care. Patient is to be having a surgery tomorrow 12/02.
[2021-12-01] MEDS: docusate sod 100mg capsule PO SCH ×2 (20:00→20:35)
[2021-12-01] MEDS: K and/or MAG REPLACEMENT MC SCH (20:00)
[2021-12-01 22:00] VITALS: BP 171/83
[2021-12-02] MEDS: HYDROcodone/acetaminophen 5mg/325mg tablet PO PRN ×2 (00:17→16:13)
[2021-12-02] MEDS: normal saline 1000ml 1,000 ML IV SCH ×3 (01:55→16:36)
[2021-12-02 02:00] VITALS: BP 124/49
[2021-12-02] MEDS ORDERED: MESSAGE TO PHARMACY PO ONE (05:10)
[2021-12-02] MEDS ORDERED: dextrose 50%-water 50ml dispensing syringe IV PRN ×2 (05:10)
[2021-12-02] MEDS ORDERED: glucagon, human recombinant 1mg kit SUBCUT PRN (05:10)
[2021-12-02] MEDS ORDERED: DEXTROSE 15 GM of carb/4 tabs (each vial/BOTTLE has 4 tablets) PO PRN ×2 (05:10)
[2021-12-02 06:00] VITALS: BP 151/55
[2021-12-02 06:26] LABS: BASOPHILS # (AUTO) 0.1 X10'3 (0-0.2); BASOPHILS % (AUTO) 0.7 % (0-1); EOSINOPHILS # (AUTO) 0.2 X10'3 (0-0.9); EOSINOPHILS % (AUTO) 2.4 % (0-6); HEMATOCRIT 26.9 % (42.0-52.0); HEMOGLOBIN 8.9 g/dl (14.0-17.9); LYMPHOCYTES # (AUTO) 1.9 X10'3 (1.1-4.8); LYMPHOCYTES % (AUTO) 20.1 % (21-51); MEAN CORPUSCULAR HEMOGLOBIN 30.1 PG (27.0-31.0); MEAN CORPUSCULAR VOLUME 91.2 FL (78-98); MONOCYTES # (AUTO) 0.8 X10'3 (0-0.9); NEUTROPHILS # (AUTO) 6.6 X10'3 (1.8-7.7); NEUTROPHILS % (AUTO) 68.8 % (42-75); PLATELET COUNT 343 X10'3 (140-440); RED BLOOD COUNT 2.95 X10'6 (4.70-6.10); RED CELL DISTRIBUTION WIDTH 15.6 % (11.5-14.5); WHITE BLOOD COUNT 9.6 X10'3 (4.5-11.0)
[2021-12-02 06:36] LABS: ALANINE AMINOTRANSFERASE 15 U/L (12-78); ALBUMIN 2.2 G/DL (3.4-5.0); ALBUMIN/GLOBULIN RATIO 0.4 (1.1-1.5); ALKALINE PHOSPHATASE 92 IU/L (46-116); ANION GAP 10 (8-16); ASPARTATE AMINO TRANSFERASE 14 U/L (10-37); BILIRUBIN,TOTAL 0.2 MG/DL (0.1-1.0); BLOOD UREA NITROGEN 48 MG/DL (7-18); CHLORIDE 102 MMOL/L (99-107); CHOL/HDL RATIO 2.9 (0.00-4.99); CHOLESTEROL 106 MG/DL (0-200); CREATININE 5.33 MG/DL (0.60-1.10); GLUCOSE 163 MG/DL (70-104); HDL CHOLESTEROL 37 MG/DL (35-60); LDL CHOLESTEROL 55 MG/DL (50-100); MAGNESIUM 1.9 MG/DL (1.5-2.4); PHOSPHORUS 4.3 MG/DL (2.3-4.5); POTASSIUM 4.1 MMOL/L (3.5-5.1); SODIUM 137 MMOL/L (135-145); TOTAL CARBON DIOXIDE 24.6 MMOL/L (24-32); TOTAL PROTEIN 7.8 G/DL (6.4-8.2); TRIGLYCERIDES 97 MG/DL (20-135); eGFR 11 ML/MIN
--- NOTE | 2021-12-02 06:40 | NUR ---
Problems reprioritized. Patient report given, questions answered & plan of care reviewed with Nilda NAVAS.
[2021-12-02] MEDS: K and/or MAG REPLACEMENT MC SCH ×2 (08:00→18:53)
[2021-12-02 11:00] VITALS: BP 156/62
--- NOTE | 2021-12-02 11:10 | NUR ---
Initial: Pt admitted w/ chronic R gluteal wound and ESRD on HD per EMR. A1c 9.5 though pt out to OR for debridement, pt would benefit from DM ed by RD once stable post-op. Photo of wound reviewed, appeared more abscess-like rather than open wound. Recommend advancing to Carb controlle diet once appropriate. Do not recommend Renal diet at this time as electrolytes WNL currently. LBM 12/01. Will continue to monitor for possible nutrition intervention needs. Recs: 1. Advance to Carb controlled diet once appropriate 2. Monitor need for additional calories/protein 3. Bowel care per rx 4. Weekly wts Addendum: 12/02/21 at [address] Amended: Links added.
--- NOTE | 2021-12-02 14:10 | NUR ---
Diet order changed due to surgery changed to 12/03/21 [facility]
--- NOTE | 2021-12-02 15:00 | NUR ---
Transfer Pt. transferred to ortho/neuro; Report called to Maricruz NAVAS with no further questions [facility]
--- NOTE | 2021-12-02 15:00 | NUR ---
received report from EOLISE Munguia. patient arrived to the floor. VSS. no complaints.
[2021-12-02 16:00] VITALS: BP 149/41
--- NOTE | 2021-12-02 16:40 | NUR ---
Labs reordered due to being under the wrong visit number, per Maxime in the lab.
[2021-12-02 17:06] LABS: BASOPHILS # (AUTO) 0.1 X10'3 (0-0.2); BASOPHILS % (AUTO) 0.7 % (0-1); EOSINOPHILS # (AUTO) 0.2 X10'3 (0-0.9); EOSINOPHILS % (AUTO) 1.9 % (0-6); HEMATOCRIT 29.8 % (42.0-52.0); HEMOGLOBIN 9.8 g/dl (14.0-17.9); LYMPHOCYTES # (AUTO) 1.3 X10'3 (1.1-4.8); LYMPHOCYTES % (AUTO) 13.8 % (21-51); MEAN CORPUSCULAR HEMOGLOBIN 30.1 PG (27.0-31.0); MEAN CORPUSCULAR HGB CONC 32.9 g/dL (33.0-36.5); MEAN CORPUSCULAR VOLUME 91.5 FL (78-98); MONOCYTES # (AUTO) 0.6 X10'3 (0-0.9); NEUTROPHILS # (AUTO) 7.1 X10'3 (1.8-7.7); NEUTROPHILS % (AUTO) 76.6 % (42-75); PLATELET COUNT 326 X10'3 (140-440); RED BLOOD COUNT 3.26 X10'6 (4.70-6.10); RED CELL DISTRIBUTION WIDTH 15.5 % (11.5-14.5); WHITE BLOOD COUNT 9.2 X10'3 (4.5-11.0)
--- NOTE | 2021-12-02 17:26 | NUR ---
blood glucose 179, patient just finished a sandwhich from a late lunch. Addendum: 12/02/21 at 1726 by Santa Price RN Amended: Links added.
[2021-12-02 17:40] LABS: ALANINE AMINOTRANSFERASE 15 U/L (12-78); ALBUMIN 2.3 G/DL (3.4-5.0); ALBUMIN/GLOBULIN RATIO 0.4 (1.1-1.5); ALKALINE PHOSPHATASE 94 IU/L (46-116); ANION GAP 10 (8-16); ASPARTATE AMINO TRANSFERASE 11 U/L (10-37); BILIRUBIN,TOTAL 0.2 MG/DL (0.1-1.0); BLOOD UREA NITROGEN 49 MG/DL (7-18); BUN/CREATININE RATIO 8.3 (5.4-32.0); CALCIUM 8.6 MG/DL (8.5-10.1); CHLORIDE 100 MMOL/L (99-107); CREATININE 5.87 MG/DL (0.60-1.10); GLUCOSE 234 MG/DL (70-104); PHOSPHORUS 4.1 MG/DL (2.3-4.5); POTASSIUM 4.7 MMOL/L (3.5-5.1); SODIUM 135 MMOL/L (135-145); TOTAL PROTEIN 8.5 G/DL (6.4-8.2); eGFR 10 ML/MIN
[2021-12-02 18:00] VITALS: BP 149/41
--- NOTE | 2021-12-02 18:04 | NUR ---
Problems reprioritized. Patient report given, questions answered & plan of care reviewed with ELOISE Bull.
[2021-12-02] MEDS: insulin Lispro (HumaLOG) vial - multi-dose SQ SCH (18:51)
[2021-12-02] MEDS: docusate sod 100mg capsule PO SCH (18:52)
[2021-12-02] MEDS: insulin glargine (Lantus) pen - multi-dose SQ SCH (21:11)
[2021-12-02 22:00] VITALS: BP 153/68
[2021-12-03] VITALS (20 sets, daily range): BP systolic 113–173; BP diastolic 59–88
[2021-12-03] MEDS: normal saline 1000ml 1,000 ML IV SCH ×2 (04:11→17:55)
[2021-12-03] MEDS: HYDROcodone/acetaminophen 5mg/325mg tablet PO PRN ×3 (04:11→23:41)
--- NOTE | 2021-12-03 06:05 | NUR ---
Problems reprioritized. Patient report given, questions answered & plan of care reviewed with Dilia NAVAS.
--- NOTE | 2021-12-03 06:30 | NUR ---
Patient in room ORTHO 4006. I have received report from ELOISE Bull and had the opportunity to ask questions and assume patient care.
[2021-12-03] MEDS: docusate sod 100mg capsule PO SCH ×2 (06:38→18:51)
[2021-12-03 06:40] LABS: BASOPHILS # (AUTO) 0.1 X10'3 (0-0.2); BASOPHILS % (AUTO) 0.8 % (0-1); EOSINOPHILS # (AUTO) 0.2 X10'3 (0-0.9); EOSINOPHILS % (AUTO) 2.2 % (0-6); HEMATOCRIT 29.2 % (42.0-52.0); HEMOGLOBIN 9.3 g/dl (14.0-17.9); LYMPHOCYTES # (AUTO) 1.7 X10'3 (1.1-4.8); LYMPHOCYTES % (AUTO) 17.9 % (21-51); MEAN CORPUSCULAR VOLUME 90.7 FL (78-98); MEAN PLATELET VOLUME 7.4 FL (7.4-10.4); MONOCYTES # (AUTO) 0.8 X10'3 (0-0.9); MONOCYTES % (AUTO) 8.3 % (2-12); NEUTROPHILS # (AUTO) 6.6 X10'3 (1.8-7.7); NEUTROPHILS % (AUTO) 70.8 % (42-75); PLATELET COUNT 342 X10'3 (140-440); RED BLOOD COUNT 3.22 X10'6 (4.70-6.10); RED CELL DISTRIBUTION WIDTH 15.1 % (11.5-14.5); WHITE BLOOD COUNT 9.3 X10'3 (4.5-11.0)
[2021-12-03] MEDS ORDERED: bacitracin 15gm ointment TP ONE (06:49)
--- NOTE | 2021-12-03 06:59 | NUR ---
Pt to OR via bed for I&D, Called report to ELOISE Ruiz in recovery
[2021-12-03 07:17] LABS: ALANINE AMINOTRANSFERASE 49 U/L (12-78); ALBUMIN 2.3 G/DL (3.4-5.0); ALBUMIN/GLOBULIN RATIO 0.4 (1.1-1.5); ALKALINE PHOSPHATASE 151 IU/L (46-116); ANION GAP 9 (8-16); ASPARTATE AMINO TRANSFERASE 50 U/L (10-37); BILIRUBIN,TOTAL 0.3 MG/DL (0.1-1.0); BLOOD UREA NITROGEN 56 MG/DL (7-18); BUN/CREATININE RATIO 9.6 (5.4-32.0); CALCIUM 8.4 MG/DL (8.5-10.1); CHLORIDE 106 MMOL/L (99-107); CREATININE 5.84 MG/DL (0.60-1.10); GLUCOSE 163 MG/DL (70-104); PHOSPHORUS 4.7 MG/DL (2.3-4.5); POTASSIUM 4.9 MMOL/L (3.5-5.1); SODIUM 137 MMOL/L (135-145); TOTAL CARBON DIOXIDE 22.1 MMOL/L (24-32); TOTAL PROTEIN 8.2 G/DL (6.4-8.2); eGFR 10 ML/MIN
[2021-12-03] MEDS ORDERED: cefazolin/dext.iso 2,000MG/50 ML BAG IV ONE (07:25)
[2021-12-03] MEDS ORDERED: FENTANYL CITRATE/PF 50 MCG/1 ML VIAL ONE ×2 (07:28→07:48)
[2021-12-03] MEDS ORDERED: midazolam 1 mg/ML 2ml injection ONE (07:29)
[2021-12-03] MEDS ORDERED: ketamine 50mg/5ml syringe ONE (07:29)
[2021-12-03] MEDS ORDERED: hydrALAZINE 20mg/ml inj. IV ONE (07:56)
[2021-12-03] MEDS ORDERED: LIDOcaine 2% (20mg/ml) 5ml vial ONE (07:56)
[2021-12-03] MEDS ORDERED: propofol inj 20 ML IV ONE (07:56)
[2021-12-03] MEDS: K and/or MAG REPLACEMENT MC SCH ×2 (08:00→18:51)
[2021-12-03] MEDS: sevelamer carbonate 800mg tablet PO SCH ×3 (08:00→18:00)
--- NOTE | 2021-12-03 08:03 | NUR ---
Received from OR via SURGICAL BED , accompanied by Anesthesiologist GRECIA and report given by Anesthesiolgist. PATIENT WITH 22G PIV IN LEFT UE RUNNING LR AT 100. VSS AT THIS TIME. RIGHT BUTTOCK DDRESSING IS BLOODY BUT CONTAINED WITHIN DRESSING AT THIS TIME. WILL CONTINUE TO ASSESS AND TREAT. MEDICATION FOR PAIN UPON ARRIVAL. Addendum: 12/03/21 at 0821 by Max Morris RN, RN Amended: Links added.
[2021-12-03] MEDS ORDERED: ringers solution, lacted 1,000 ML IV SCH (08:10)
[2021-12-03] MEDS ORDERED: morphine 2 MG/ML inj. syringe IV PRN (08:10)
[2021-12-03] MEDS ORDERED: ondansetron/PF 4mg/2ml inj IV PRN (08:10)
--- NOTE | 2021-12-03 08:18 | NUR ---
ADDENDUM. NS AT 10 CC Addendum: 12/03/21 at 0821 by Max Morris RN, RN Amended: Links added.
--- NOTE | 2021-12-03 09:13 | NUR ---
Initial: Pt admitted w/ chronic R gluteal wound and ESRD on HD per EMR. A1c 9.5 though pt out to OR for debridement, pt would benefit from DM ed by RD once stable post-op.Recommend advancing to Carb controlled diet once appropriate. Do not recommend Renal diet at this time as electrolytes WNL currently. LBM 12/01. Will continue to monitor for possible nutrition intervention needs. Recs: 1. Advance to Carb controlled diet once appropriate 2. Monitor need for additional calories/protein 3. Bowel care per rx 4. Scaled wts w/ dialysis Addendum: 12/03/21 at [address] Amended: Links added.
[2021-12-03] MEDS ORDERED: LIDOcaine 1% (10mg/ml) 2ml vial SQ ONE (10:20)
[2021-12-03] MEDS ORDERED: EPOETIN ALFA-EPBX 20,000 UNIT/ML 1 ML MDV IV ONE (10:20)
--- NOTE | 2021-12-03 18:32 | NUR ---
Problems reprioritized. Patient report given, questions answered & plan of care reviewed with ELOISE Bull.
[2021-12-03] MEDS: insulin Lispro (HumaLOG) vial - multi-dose SQ SCH (18:50)
[2021-12-03] MEDS: insulin glargine (Lantus) pen - multi-dose SQ SCH (21:10)
[2021-12-04 02:00] VITALS: BP 123/63
[2021-12-04 06:00] VITALS: BP 141/65
[2021-12-04 06:23] LABS: BASOPHILS # (AUTO) 0.1 X10'3 (0-0.2); BASOPHILS % (AUTO) 0.7 % (0-1); EOSINOPHILS # (AUTO) 0.2 X10'3 (0-0.9); EOSINOPHILS % (AUTO) 2.6 % (0-6); HEMATOCRIT 29.3 % (42.0-52.0); HEMOGLOBIN 9.4 g/dl (14.0-17.9); LYMPHOCYTES # (AUTO) 1.2 X10'3 (1.1-4.8); LYMPHOCYTES % (AUTO) 14.3 % (21-51); MEAN CORPUSCULAR HEMOGLOBIN 29.3 PG (27.0-31.0); MEAN CORPUSCULAR HGB CONC 32.1 g/dL (33.0-36.5); MEAN CORPUSCULAR VOLUME 91.1 FL (78-98); MEAN PLATELET VOLUME 7.6 FL (7.4-10.4); MONOCYTES # (AUTO) 0.8 X10'3 (0-0.9); MONOCYTES % (AUTO) 9.1 % (2-12); NEUTROPHILS # (AUTO) 6.3 X10'3 (1.8-7.7); NEUTROPHILS % (AUTO) 73.3 % (42-75); PLATELET COUNT 307 X10'3 (140-440); RED BLOOD COUNT 3.21 X10'6 (4.70-6.10); RED CELL DISTRIBUTION WIDTH 15.8 % (11.5-14.5); WHITE BLOOD COUNT 8.6 X10'3 (4.5-11.0)
--- NOTE | 2021-12-04 06:43 | NUR ---
Problems reprioritized. Patient report given, questions answered & plan of care reviewed with Clara NAVAS.
[2021-12-04 07:25] LABS: ALANINE AMINOTRANSFERASE 47 U/L (12-78); ALBUMIN 2.3 G/DL (3.4-5.0); ALBUMIN/GLOBULIN RATIO 0.4 (1.1-1.5); ALKALINE PHOSPHATASE 265 IU/L (46-116); ANION GAP 8 (8-16); ASPARTATE AMINO TRANSFERASE 51 U/L (10-37); BILIRUBIN,TOTAL 0.3 MG/DL (0.1-1.0); BLOOD UREA NITROGEN 38 MG/DL (7-18); BUN/CREATININE RATIO 8.5 (5.4-32.0); CALCIUM 8.3 MG/DL (8.5-10.1); CHLORIDE 103 MMOL/L (99-107); CREATININE 4.46 MG/DL (0.60-1.10); GLUCOSE 152 MG/DL (70-104); PHOSPHORUS 4.3 MG/DL (2.3-4.5); POTASSIUM 4.7 MMOL/L (3.5-5.1); SODIUM 136 MMOL/L (135-145); TOTAL CARBON DIOXIDE 25.5 MMOL/L (24-32); TOTAL PROTEIN 8.2 G/DL (6.4-8.2); eGFR 14 ML/MIN
[2021-12-04] MEDS: K and/or MAG REPLACEMENT MC SCH (08:00)
[2021-12-04] MEDS: sevelamer carbonate 800mg tablet PO SCH ×2 (08:00→12:25)
[2021-12-04] MEDS: docusate sod 100mg capsule PO SCH (08:36)
[2021-12-04] MEDS: insulin Lispro (HumaLOG) vial - multi-dose SQ SCH (08:40)
--- NOTE | 2021-12-04 08:50 | NUR ---
Left message on wound care voice mail for consult
[2021-12-04] MEDS: HYDROcodone/acetaminophen 5mg/325mg tablet PO PRN (09:32)
[2021-12-04 10:00] VITALS: BP 135/61
--- NOTE | 2021-12-04 13:03 | NUR ---
F/u: Pt seen at bedside provided with written and verbal protein and DM educations. Pt states his daughter helps him out with DM management d/t blindness. Pt reports taking insulin per rx which was recently increased a couple weeks ago and checks BG levels twice a day in the morning and evening with results ranging 130-160 mg/dL. Pt also reports drinking about one Boost daily with additional ONS during dialysis tx. All of patient's questions were answered at this time. RD contact information provided and pt encouraged to reach out if needed. Pt endorses a good appetite and requests double protein with meals, d/w dietary. Pt denies food allergies or difficulty chewing/swallowing. Will continue to follow. Addendum: 12/04/21 at [address] Amended: Links added.
--- NOTE | 2021-12-04 15:30 | NUR ---
Patients discharge instructions reviewed with patient and patient family member. Patient was given dressings for discharge care. Pictures in the chart. Patients daughter will contact dialysis for appts and also contact out patient wound care for appt. Patients IV dc'd cannula intact.
== END 2021-12-04 15:50 | disposition home or self-care (01) | DRG 604 ==
LOC: PCU 3S 15:48 → ORTHO 4S 12-02 15:00
PROVIDERS: ADMIT Family Medicine; ATTEND Family Medicine
PROC: 5A1D70Z Performance of Urinary Filtration, Intermittent, Less than 6 Hours Per Day (ICD-10-PCS; 2021-12-03)
PROC: 0Y900ZZ Drainage of Right Buttock, Open Approach (ICD-10-PCS; principal; 2021-12-03 07:25)
DX: S31.819A Unspecified open wound of right buttock, initial encounter (principal); N18.6 End stage renal disease; L02.31 Cutaneous abscess of buttock; E11.40 Type 2 diabetes mellitus with diabetic neuropathy, unspecified; E78.5 Hyperlipidemia, unspecified; D63.8 Anemia in other chronic diseases classified elsewhere; X58.XXXA Exposure to other specified factors, initial encounter; Z20.822 Contact with and (suspected) exposure to COVID-19; E11.22 Type 2 diabetes mellitus with diabetic chronic kidney disease; E11.39 Type 2 diabetes mellitus with other diabetic ophthalmic complication; H54.8 Legal blindness, as defined in USA; Z99.2 Dependence on renal dialysis; Y93.89 Activity, other specified; Y92.89 Other specified places as the place of occurrence of the external cause; Y99.8 Other external cause status
CPT/HCPCS: 36415; 71045; 80053; 80061; 82948; 83036; 83735; 84100; 84132; 85025; 85610; 85730; 87081; 87635; 93005; 99215; A4618; A6253; A6266; A6449; A7000; G0257; G0378; J0360; J0690; J1170; J1644; J1815; J2250; J2704; J3010; J3490; J7030; J7120; Q4081